=== PATIENT | female | born 1965 | race Caucasian/White ===

== ENCOUNTER → 2018-08-08 | Outpatient (CLI) | payer BC ==
--- NOTE | 2018-08-08 10:48 | RADIOLOGY REPORT (SQ) ---
EXAM DESCRIPTION: CT ABDOMEN COMBO COMPLETED DATE/TIME: 08/08/2018 10:15 am REASON FOR STUDY: ABD PAIN (R10.9) R10.9 UNSPECIFIED ABDOMINAL PAIN COMPARISON: 10/10/2014 TECHNIQUE: CT scan of the abdomen performed with and without intravenous contrast, and with oral con trast. Contrasted imaging performed using helical scanning technique with dynamic intravenous contras t injection. Images reviewed with lung, soft tissue, and bone windows. Reconstructed coronal and sagi ttal MPR images reviewed. Delayed images for evaluation of the urinary system also acquired and evalu ated. All images stored on PACS. All CT scanners at this facility use dose modulation, iterative reconstruction, and/or weight based d osing when appropriate to reduce radiation dose to as low as reasonably achievable (ALARA). [facility]: Dose Right [facility]: CareDose [facility]: Dose Right [facility]: Teradose 4D [facility]: [email or web address] CONTRAST TYPE AND DOSE: contrast/concentration: Isovue 350.00 mg/ml; Total Contrast Delivered: 88.0 ml; Total Saline Delivered: 70.0 ml RENAL FUNCTION: Creatinine -0.8 RADIATION DOSE: CT Rad equipment meets quality standard of care and radiation dose reduction techniq ues were employed. CTDIvol: 8.9 - 9.3 mGy. DLP: 979 mGy-cm.. LIMITATIONS: None. FINDINGS: LOWER CHEST: No significant interval changes. LIVER: Normal size. No masses. No dilated ducts. The hepatic and portal veins are patent. SPLEEN: Normal size. No focal lesions. PANCREAS: No masses. No significant calcifications. No adjacent inflammation or peripancreatic fluid collections. Pancreatic duct not dilated. GALLBLADDER: Prior cholecystectomy. ADRENAL GLANDS: No significant masses or asymmetry. RIGHT KIDNEY AND URETER: No solid masses. No significant calcifications. No hydronephrosis or hyd roureter. LEFT KIDNEY AND URETER: Extrarenal pelvis, normal anatomic variant. Very tiny punctate nonobstructi ng calculus in the upper mid pole of the kidney. No solid masses. AORTA AND VESSELS: No aneurysm. No dissection. Renal arteries, SMA, celiac without stenosis. RETROPERITONEUM: No retroperitoneal adenopathy, hemorrhage or masses. BOWEL AND PERITONEAL CAVITY: No masses or inflammatory changes. No free fluid or peritoneal masses. APPENDIX: Normal. ABDOMINAL WALL: Prior midline ventral hernia repair. Small periumbilical hernia which contains fat is suggested. BONES: The osseous structures are stable in appearance. OTHER: Small stable hiatal hernia. IMPRESSION: 1. Prior ventral abdominal wall hernia repair. Small periumbilical hernia which contai ns fat is suggested. 2. Prior cholecystectomy. 3. Very tiny punctate nonobstructing left renal calculus. TECHNICAL DOCUMENTATION: JOB ID: [id number] Quality ID # [id number]: Final reports with documentation of one or more dose reduction techniques (e.g., Au tomated exposure control, adjustment of the mA and/or kV according to patient size, use of iterative reconstruction technique) 2010 [employer]- All Rights Reserved Reading location - IP/workstation name: [email or web address]
== END ==
LOC: RAD 09:20
PROVIDERS: ATTEND Family Medicine
DX: R10.9 Unspecified abdominal pain (principal); N20.0 Calculus of kidney; K44.9 Diaphragmatic hernia without obstruction or gangrene; K42.9 Umbilical hernia without obstruction or gangrene
CPT/HCPCS: 74170; 82565

== ENCOUNTER 2019-04-13 20:34 | Emergency (ER) | payer BC ==
[2019-04-13] MEDS ORDERED: FAMOTIDINE 20 MG TABLET PO ONE (20:39)
--- NOTE | 2019-04-13 20:44 | ER Document Report ---
ED Medical Screen (RME) - General Chief Complaint: Allergic Reaction Stated Complaint: ALLERGIC REACTION Time Seen by Provider: 04/13/19 20:39 Primary Care Provider: JOHN SWANN MD [Primary Care Provider] - Follow up as needed Mode of Arrival: Ambulatory Information source: Patient Notes: 53-year-old female presents to ED for complaint of feeling tightness in her throat. She states she had a Kenalog shot 3 days ago which she was supposed to take Atarax daily for 3 days. She took it the first 2 days but did not take it today until later in the day. She states it felt like her throat was swollen up. She states she has had allergic reactions to this in the past and the doctor decided he was going to give it to her just put her on the Atarax. Patient is able to swallow and speak but states she needs to clear her throat frequently her throat feels scratchy. I have greeted and performed a rapid initial assessment of this patient. A comprehensive ED assessment and evaluation of the patient, analysis of test results and completion of medical decision making process will be conducted by an additional ED providers. TRAVEL OUTSIDE OF THE [place] IN LAST 30 DAYS: No - Related Data Allergies/Adverse Reactions: codeine [Codeine] Adverse Reaction (Mild, Verified 03/30/11 08:03) ITCHING epinephrine [Epinephrine] Adverse Reaction (Mild, Verified 07/01/15 03:32) elevated BP cefaclor [From Ceclor] Adverse Reaction (Unknown, Verified 07/01/15 03:33) aching joints levofloxacin [From Levaquin] Adverse Reaction (Unknown, Verified 07/01/15 03:33) aching joints Past Medical History - Past Medical History Cardiac Medical History: Denies: Hx Heart Attack, Hx Hypertension Pulmonary Medical History: Denies: Hx Asthma, Hx Bronchitis, Hx COPD, Hx Pneumonia Neurological Medical History: Denies: Hx Cerebrovascular Accident, Hx Seizures GI Medical History: Musculoskeltal Medical History: Denies Hx Arthritis Psychiatric Medical History: Reports: Hx Anxiety, Hx Depression - During father's 20 years ago Infectious Medical History: Past Surgical History: Denies: Hx Pacemaker - Immunizations Hx Diphtheria, Pertussis, Tetanus Vaccination: Yes Doctor's Discharge - Discharge Referrals: JOHN SWANN MD [Primary Care Provider] - Follow up as needed
[2019-04-13] MEDS ORDERED: EPINEPHRINE INJ/PF 1 MG/1 ML AMPULE IM ONE (20:59)
--- NOTE | 2019-04-13 21:35 | RADIOLOGY REPORT (SQ) ---
EXAM DESCRIPTION: [facility]: XR NECK SOFT TISSUE Views: 2 CLINICAL HISTORY: 53 years Female, feels tightness to throat COMPARISON: None. FINDINGS: Epiglottis is normal. No prevertebral edema. No airway narrowing. Bony structures are unremarkable. No hyperdense foreign bodies. IMPRESSION: 1. Normal soft tissue radiographs of the neck
[2019-04-14] MEDS ORDERED: FAMOTIDINE 20 MG TABLET PO ONE (00:13)
--- NOTE | 2019-04-14 00:16 | ER Document Report ---
ED Allergic Reaction - General Chief Complaint: Allergic Reaction Stated Complaint: ALLERGIC REACTION Time Seen by Provider: 04/13/19 20:39 Primary Care Provider: JOHN SWANN MD [NO LOCAL MD] - Follow up as needed Mode of Arrival: Ambulatory Notes: Patient is a 53-year-old female who presents the emergency department with a chief complaint of an allergic reaction. Patient was given Kenalog 4 days ago patient has history of an allergic reaction to Kenalog in the past. She was out today and she felt like her throat was closing up. She denies any new exposure to any foods. Patient was given Atarax by her primary care provider. Patient was given epinephrine in triage and states that she feels better and feels like that her throat is not closing up anymore. TRAVEL OUTSIDE OF THE [place] IN LAST 30 DAYS: No - Related Data Allergies/Adverse Reactions: codeine [Codeine] Adverse Reaction (Mild, Verified 03/30/11 08:03) ITCHING epinephrine [Epinephrine] Adverse Reaction (Mild, Verified 07/01/15 03:32) elevated BP cefaclor [From Ceclor] Adverse Reaction (Unknown, Verified 07/01/15 03:33) aching joints levofloxacin [From Levaquin] Adverse Reaction (Unknown, Verified 07/01/15 03:33) aching joints Past Medical History - General Information source: Patient - Social History Smoking Status: Former Smoker Family History: CAD - father Patient has suicidal ideation: No Patient has homicidal ideation: No - Past Medical History Cardiac Medical History: Denies: Hx Heart Attack, Hx Hypertension Pulmonary Medical History: Denies: Hx Asthma, Hx Bronchitis, Hx COPD, Hx Pneumonia Neurological Medical History: Denies: Hx Cerebrovascular Accident, Hx Seizures GI Medical History: Musculoskeletal Medical History: Denies Hx Arthritis Psychiatric Medical History: Reports: Hx Anxiety, Hx Depression - During father's 20 years ago Infectious Medical History: Past Surgical History: Denies: Hx Pacemaker - Immunizations Hx Diphtheria, Pertussis, Tetanus Vaccination: Yes Review of Systems - Review of Systems Notes: REVIEW OF SYSTEMS: CONSTITUTIONAL : Denies recent illness. Denies recent unintentional weight loss. Denies fever, chills, or sweats. EENT: Denies eye, ear, throat, or mouth pain, discharge, or symptoms. Denies nasal or sinus congestion. CARDIOVASCULAR: Denies chest pain. RESPIRATORY: See HPI. GASTROINTESTINAL: Denies nausea, vomiting, and diarrhea. Denies abdominal pain. Denies constipation. GENITOURINARY: Denies difficulty urinating, burning, blood in urine, urgency or frequency. MUSCULOSKELETAL: Denies neck and back pain. Denies joint pain or swelling. SKIN: Denies rash, itchiness, or lesions HEMATOLOGIC : Denies easy bruising or bleeding. LYMPHATIC: Denies swollen, painful, enlarged glands. NEUROLOGICAL: Denies no numbness or tingling denies weakness. Denies headache. Denies altered mental status. Denies alteration in speech. PSYCHIATRIC: Denies stress, anxiety, alteration in sleep patterns, or depression. All other systems reviewed and negative. Physical Exam - Vital signs Vitals: Temp Pulse Resp BP Pulse Ox 97.7 F 71 17 163/90 H 98 04/13/19 20:40 04/13/19 20:40 04/13/19 20:40 04/13/19 20:40 04/13/19 20:40 - Notes Notes: PHYSICAL EXAMINATION: GENERAL: Appears well, healthy, well-nourished, no acute distress. HEAD: Normocephalic, atraumatic. EYES: PERRL, conjunctiva normal, all extraocular movements intact, sclera nonicteric ENT: Moist mucous membranes. NECK: Supple, no noticeable swelling, redness, rash. Normal range of motion. LUNGS: Equal breath sounds bilaterally and clear to auscultation. No wheezes rales or rhonchi. CARDIOVASCULAR: S1-S2, regular rate, regular rhythm. Radial pulses 2+, normal. ABDOMEN: Normoactive bowel sounds. Soft, nontender, no guarding, no rebound tenderness, and no masses palpated. EXTREMITIES: Normal strength and range of motion, no pitting or edema. No cyanosis. NEUROLOGICAL: Moves all extremities upon command. Strength 5/5 in all extremities. PSYCH: Normal mood, normal affect. SKIN: Warm, dry. No rash, lesions, ulcerations noted. Normal skin turgor. Course - Re-evaluation Re-evalutation: 04/14/19 00:15 Patient states that she feels much better after receiving epinephrine. No stridor or respiratory distress noted. At this time, the patient will be placed on Pepcid. I will give her an extra 20 mg of Pepcid because she still has complaints of itching in her throat. She will follow-up with her primary care provider in regards to this visit. She is in agreement with this plan. Follow- up precautions were given. Verbal discharge instructions were given to the patient. They verbalized understanding. They are stable for discharge. - Vital Signs Vital signs: Temp Pulse Resp BP Pulse Ox 97.7 F 71 17 163/90 H 98 04/13/19 20:40 04/13/19 20:40 04/13/19 20:40 04/13/19 20:40 04/13/19 20:40 Discharge - Discharge Clinical Impression: Allergic reaction Qualifiers: Encounter type: initial encounter Qualified Code(s): T78.40XA - Allergy, unspecified, initial encounter Condition: Stable Disposition: HOME, SELF-CARE Additional Instructions: You were seen today in the emergency department for an allergic reaction. You are given epinephrine and Pepcid to help with your symptoms. Continue Pepcid as directed. You can continue Atarax as prescribed by your primary care provider. Please follow-up with your primary care provider in regards to this visit. If you have shortness of breath, difficulty breathing, or any other symptoms that are worrisome to you, please return to the emergency department. Prescriptions: Famotidine [Pepcid 20 mg Tablet] 20 mg PO BID #12 tablet Referrals: JOHN SWANN MD [NO LOCAL MD] - Follow up in 3-5 days
[2019-04-14 00:35] VITALS: BP 125/66
== END 2019-04-14 00:39 | disposition home or self-care (01) ==
LOC: ER 20:34
DX: T78.40XA Allergy, unspecified, initial encounter (principal); Z87.891 Personal history of nicotine dependence
CPT/HCPCS: 70360; J0171